=== PATIENT | female | born 1985 | race Caucasian/White ===

== ENCOUNTER 2020-12-24 11:58 | Emergency (ER) | payer OTHER, SELFPAY ==
--- NOTE | ~2020-12-24 | XR_ITS ---
XR ankle RT min 3V DATE: 12/24/2020 12:15 INDICATION: Inversion injury. Lateral and posterior pain, lateral swelling TECHNIQUE: 4 views COMPARISON: None FINDINGS: There is prominent lateral soft tissue swelling. No recent fracture or dislocation of the a nkle or disruption of the ankle mortise. IMPRESSION: Prominent lateral soft tissue swelling Reviewed, dictated and finalized at location A.
[2020-12-24 12:07] VITALS: BP 158/83; PULSE 94; RESP 18; TEMP 37.2; O2SAT 98
--- NOTE | 2020-12-24 12:27 | ED.LOWEXIN ---
HPI - Extremity Injury (Lower) General Chief Complaint: Extremity Injury, Lower Stated Complaint: Possible injury to right Ankle Time Seen by Provider: 12/24/20 12:27 Source: patient Mode of arrival: ambulatory Limitations: no limitations History of Present Illness HPI Narrative: Renea Garcia is a 35 yo female who is an active individual who was rushing around and rolled her ankle while walking downstairs. Right ankle is swollen on the right, lateral side and the swelling is about the size of a tennis ball. She states that she is seeing orthopedic surgeon for laxity in her right ankle as she rolls her quite frequently and they have offered her surgery which she at this point does not want to do. Other than this sports injury she is in [facility] Related Data Home Medications Medication Instructions Recorded Confirmed spironolactone 50 mg PO DAILY 12/24/20 12/24/20 Allergies Allergy/AdvReac Type Severity Reaction Status Date / Time No Known Allergies Allergy Verified 12/24/20 12:37 Review of Systems Review of Systems: CONSTITUTIONAL: Denies fever, chills, sweats. EYES: Denies visual changes, redness, discharge. ENT: Denies rhinorrhea, congestion, sore throat, otalgia. CARDIOVASCULAR: Denies chest pain, palpitations, edema. RESPIRATORY: Denies dyspnea, wheezing, cough GASTROINTESTINAL: Denies abdominal pain, nausea, vomiting, diarrhea. GENITOURINARY: Denies dysuria, hematuria, abnormal discharge SKIN: Denies rash or itching. NEUROLOGIC: Denies numbness, or focal weakness. PSYCHIATRIC: Denies anxiety or depression. Right ankle swelling after rolling her ankle doing activity at home PMFSH Past Medical History Medical History No acute medical problems Family History Family History (Updated 12/24/20 @ 12:38 by Damaris Malone CNP) Father Heart disease Social History Social History (Updated 12/24/20 @ 12:38 by Damaris Malone CNP) Smoking status: Never smoker Alcohol intake: current Comments At time of signature, I agree with nursing past medical, surgical, social and family history. There is no relevant family history pertinent to the presenting complaint. Exam Narrative: GENERAL: This is a well-nourished, well-developed patient, in mild distress. HEAD: normocephalic, atraumatic. EYES: . Sclera clear/white. Vision is grossly intact. EARS: External ears normal, . Hearing grossly intact. NOSE: External nose normal without nasal discharge, nares without redness, no rhinorrhea. THROAT: Mucous membranes moist, NECK: Neck supple, CARDIOVASCULAR: Regular rate and rhythm without murmurs, gallops, or rubs. RESPIRATORY: Clear to auscultation. Breath sounds equal bilaterally. No wheezes, rales, or rhonchi. GASTROINTESTINAL: Abdomen soft, , SKIN: warm, intact with no suspicious lesions or rash, good texture and turgor. NEURO: awake, alert, and oriented to person, place and time. There were no obvious focal neurologic abnormalities. Steady gait EXTREMITIES: Normal range of motion. Right ankle has pronounced edema on the lateral side tender good pedal pulses color is good is able to move ankle BACK: Nontender without deformity Course Course Emergency Course: Patient comes for assessment of right ankle swelling after injury yesterday-she has a history of repeated ankle sprains with laxity to the ankle joint X-ray shows prominent lateral soft tissue swelling but no recent fracture or dislocation of the ankle with disruption of the mortise placed in Patrick wrap, told patient to take 600 mg ibuprofen 3 times a day with food for 5 days only and follow-up with orthopedic surgery Vital Signs Vital signs: Vital Signs Temperature 99 F 12/24/20 12:07 Pulse Rate 94 12/24/20 12:07 Respiratory Rate 18 12/24/20 12:07 Blood Pressure 158/83 H 12/24/20 12:07 Pulse Oximetry 98 12/24/20 12:07 Temperature 99 F 12/24/20 12:07 Pulse Rate 94
== END 2020-12-24 12:45 | disposition home or self-care (01) ==
PROVIDERS: Emergency Provider Nurse Practitioner
DX: S93.401A Sprain of unspecified ligament of right ankle, initial encounter (principal); S96.911A Strain of unspecified muscle and tendon at ankle and foot level, right foot, initial encounter; X50.9XXA Other and unspecified overexertion or strenuous movements or postures, initial encounter
CPT/HCPCS: 73610; 99213; G0463